=== PATIENT | male | born 1970 | race Caucasian/White ===

== ENCOUNTER → 2018-03-10 | Outpatient (CLI) | payer BC ==
--- NOTE | 2018-03-10 16:17 | XR ---
EXAMINATION TYPE: XR foot complete RT DATE OF EXAM: 03/10/2018 COMPARISON: None HISTORY: Chronic right foot pain, no injury TECHNIQUE: Three-view right foot FINDINGS: No acute fractures are evident. Soft tissues are unremarkable. Joint spaces are preserved. Small plantar calcaneal heel spur is present. IMPRESSION: 1. No acute osseous abnormality. 2. Calcaneal heel spur.
== END | disposition home or self-care (01) ==
LOC: LABWHC1 15:00
PROVIDERS: ATTEND Family Medicine
DX: M77.31 Calcaneal spur, right foot (principal); G40.89 Other seizures; I10 Essential (primary) hypertension
CPT/HCPCS: 36415; 80184; 84550; 85652

== ENCOUNTER 2021-12-12 13:19 | Emergency (ER) | payer BC, OTHER ==
[2021-12-12 13:53] VITALS: RESP 16
[2021-12-12] MEDS ORDERED: KETOROLAC 15 MG/ML 1 ML VIAL IM STA (15:09)
[2021-12-12] MEDS ORDERED: DEXAMETHASONE SOD PHOSPHATE 10 MG/ML 1 ML VIAL IM STA (15:09)
[2021-12-12] MEDS ORDERED: ORPHENADRINE 30 MG/ML 2 ML VIAL IM STA (15:09)
--- NOTE | 2021-12-12 15:37 | XR ---
EXAMINATION TYPE: XR lumbar spine 2 or 3V DATE OF EXAM: 12/12/2021 CLINICAL HISTORY: pain TECHNIQUE: Three views of the lumbar spine are submitted. COMPARISON: None. FINDINGS: There are 5 lumbar type vertebral bodies identified. Curvature convex to the right. The lumbar spine shows satisfactory alignment without evidence of acute fracture or dislocation. Vertebral body heigh ts are within normal limits. Moderate degenerative narrowing L3-4 through L5-S1. The overlying sof t tissue appears unremarkable. IMPRESSION: No acute fracture or dislocation is seen in the lumbar spine. ICD 10 NO FRACTURE, INITIAL EVALUATION
[2021-12-12 16:29] VITALS: BP 127/86; PULSE 82; TEMP 98
--- NOTE | 2021-12-12 16:36 | ED ---
Back Pain HPI - General Chief Complaint: Back Pain/Injury Stated Complaint: Low back pain,falls Time Seen by Provider: 12/12/21 15:00 Source: patient Limitations: no limitations - History of Present Illness Initial Comments: Patient is a 51-year-old male presenting with chief complaint of low back pain. Patient states that the pain began last night after work. He has a history of chronic back pain, but today the pain is much worse than normal. No loss of bowel or bladder control or saddle paresthesia. Patient tried taking Motrin at home, did not provide symptomatic relief. Patient denies any known trauma or injury. Patient states that the pain was worse after sitting at his desk at work for a long period of time. No abdominal pain, nausea, vomiting, leg numbness or weakness or tingling, hematochezia, melena, chest pain, shortness of breath, palpitations, headache, cough, URI like symptoms, neck pain or stiffness, radiation of pain down the legs. - Related Data Previous Rx's Medication Instructions Recorded Cyclobenzaprine HCl 10 mg PO TID PRN #20 tab 12/12/21 methylPREDNISolone Dose Pack 4 mg PO DIRECTED #1 packet 12/12/21 [Medrol Dose Pack] Allergies Allergy/AdvReac Type Severity Reaction Status Date / Time phenytoin [From Dilantin] Allergy Unknown Verified 12/12/21 13:54 Review of Systems ROS Statement: Those systems with pertinent positive or pertinent negative responses have been documented in the HPI. ROS Other: All systems not noted in ROS Statement are negative. Past Medical History Additional Past Medical History / Comment(s): chronic back pain History of Any Multi-Drug Resistant Organisms: None Reported Past Surgical History: Tonsillectomy Additional Past Surgical History / Comment(s): brain tumor removal Past Psychological History: No Psychological Hx Reported Smoking Status: Never smoker Past Alcohol Use History: None Reported Past Drug Use History: None Reported General Exam Limitations: no limitations General appearance: alert, in no apparent distress Head exam: Present: atraumatic, normocephalic, normal inspection Eye exam: Present: normal appearance, EOMI. Absent: scleral icterus Neck exam: Present: normal inspection Respiratory exam: Present: normal lung sounds bilaterally. Absent: respiratory distress, wheezes, rales, rhonchi, stridor Cardiovascular Exam: Present: regular rate, normal rhythm, normal heart sounds. Absent: systolic murmur, diastolic murmur, rubs, gallop, clicks Back exam: Present: normal inspection, tenderness, muscle spasm, paraspinal tenderness. Absent: vertebral tenderness Expanded Back exam: Absent: saddle anesthesia Back exam: Negative Straight Leg Raising: Left, Right Neurological exam: Present: alert, oriented X3, CN II-XII intact Psychiatric exam: Present: normal affect, normal mood Skin exam: Present: warm, dry, intact, normal color. Absent: rash Course Vital Signs 12/12/21 12/12/21 13:50 16:29 Temperature 98.4 F 98 F Pulse Rate 72 82 Respiratory 16 16 Rate Blood Pressure 136/84 127/86 O2 Sat by Pulse 96 99 Oximetry Medical Decision Making - Medical Decision Making Patient is a 51-year-old male with history of chronic back pain presenting with chief complaint of acute low back pain. States that pain began yesterday, no loss of bowel or bladder control, saddle paresthesia, leg numbness or weakness. Denies any trauma or inciting injury. States that sitting for long periods of time makes the pain worse. On exam there is paraspinal muscle tenderness, no vertebral tenderness. Straight leg raise is negative, patient has pain the entire time during the test and not the correct angle for positive straight leg raise test. X-ray shows no acute fracture dislocation of the lumbar spine. Patient was given 30 mg IM Toradol, 60 mg IM Norflex, 10 mg Decadron for pain control. Patient notes improvement in his symptoms after medication is administered. He appears stable for discharge with outpatient follow-up at this time. He is prescribed Medrol Dosepak and cyclobenzaprine 10 mg up to 3 times a day as needed for pain control, may cause drowsiness do not take before driving or operating heavy machinery. Follow up with PCP in one to 2 days. He is provided with a work note. Take Motrin and Tylenol as needed for pain control. I educated him on return parameters and alarm symptoms. Answered all questions. Report back to ER with any worsening symptoms. Patient conveyed verbal understanding and agreed to the plan. Disposition Clinical Impression: Strain of lumbar region Disposition: HOME SELF-CARE Condition: Good Instructions (If sedation given, give patient instructions): Acute Low Back Pain (ED), Lower Back Exercises (ED) Additional Instructions: Take Motrin and Tylenol as needed for pain control per package instructions. Take medication as prescribed. Utilize heat and ice for pain control. Follow- up with primary care in 1-2 days. Report back to ER if any worsening symptoms. Prescriptions: Cyclobenzaprine HCl 10 mg PO TID PRN #20 tab PRN Reason: Spasms methylPREDNISolone Dose Pack [Medrol Dose Pack] 4 mg PO DIRECTED #1 packet Is patient prescribed a controlled substance at d/c from ED?: No Referrals: Nicolás Milton Jr, [Primary Care Provider] - 1-2 days Time of Disposition: 16:42
== END 2021-12-12 17:23 | disposition home or self-care (01) ==
LOC: EC 13:19
DX: S39.012A Strain of muscle, fascia and tendon of lower back, initial encounter (principal); Z88.8 Allergy status to other drugs, medicaments and biological substances; X58.XXXA Exposure to other specified factors, initial encounter; Y93.89 Activity, other specified
CPT/HCPCS: 72100; 99283; 96372; J1100; J2360; J1885

== ENCOUNTER → 2022-06-04 | Outpatient (CLI) | payer OTHER ==
[2022-06-04 13:51] LABS: Appearance,Urine Clear (Clear); Bilirubin,Urine Negative (Negative); Blood,Urine Negative (Negative); Color,Urine Yellow; Glucose,Urine (UA) Negative (Negative); Ketones,Urine Negative (Negative); Leukocyte Esterase,Urine Negative (Negative); Nitrite,Urine Negative (Negative); Protein,Urine Negative (Negative); Specific Gravity,Urine 1.023 (1.001-1.035); Urobilinogen,Urine <2.0 mg/dL (<2.0)
[2022-06-04 18:23] LABS: Basophils # (A) 0.08 X 10*3/uL (0.00-0.10); Basophils % (A) 1.3 %; Eosinophils # (A) 0.21 X 10*3/uL (0.04-0.35); Eosinophils % (A) 3.3 %; HCT 45.5 % (39.6-50.0); HGB 15.5 g/dL (13.0-17.0); Immature Grans, Automated 0.3 %; Lymphocytes # (A) 1.49 X 10*3/uL (0.90-5.00); Lymphocytes % (A) 23.5 %; MCH 30.7 pg (27.0-32.0); MCHC 34.1 g/dL (32.0-37.0); MCV 90.1 fL (80.0-97.0); Mean Platelet Volume 10.5 fL (9.5-12.2); Monocytes # (A) 0.49 X 10*3/uL (0.20-1.00); Monocytes % (A) 7.7 %; NRBC Per 100 WBC 0 /100 WBCS (0.0-0.0); Neutrophils # (A) 4.05 X 10*3/uL (1.80-7.70); Neutrophils % (A) 63.9 %; Platelet Count 278 X 10*3/uL (140-440); RBC 5.05 X 10*6/uL (4.40-5.60); RDW 11.8 % (11.5-14.5); WBC 6.34 X 10*3/uL (4.50-10.00)
[2022-06-04 20:32] LABS: ALT 25 U/L (10-49); AST 21 U/L (14-35); African American GFR (CKD) 109.6 (60.0-200.0); Albumin 4.7 g/dL (3.8-4.9); Albumin/Globulin Ratio 2.02 (1.60-3.17); Alkaline Phosphatase 118 U/L (41-126); Blood Urea Nitrogen 16.3 mg/dL (9.0-27.0); Calcium 9.3 mg/dL (8.7-10.3); Carbon Dioxide 26.8 mmol/L (20.0-27.5); Chloride 105 mmol/L (96-109); Chol/HDL Ratio 3.76 Ratio; Globulin 2.3 g/dL (1.6-3.3); Glucose 101 mg/dL (70-110); LDL Cholesterol,Calculated 86.7 mg/dL (0.0-131.0); Non-African American GFR(CKD) 94.5 (60.0-200.0); Potassium 4.7 mmol/L (3.5-5.5); Sodium 142 mmol/L (135-145)
== END | disposition home or self-care (01) ==
LOC: LABWHC1 12:46
PROVIDERS: ATTEND Family Medicine
DX: Z00.00 Encounter for general adult medical examination without abnormal findings (principal); I10 Essential (primary) hypertension; G40.909 Epilepsy, unspecified, not intractable, without status epilepticus; Z12.5 Encounter for screening for malignant neoplasm of prostate
CPT/HCPCS: 36415; 80053; 80061; 81003; 84153; 85025